=== PATIENT | male | born 2005 | race Caucasian/White ===

== ENCOUNTER 2024-07-20 16:01 | Emergency (ER) | payer MEDICAID, SELFPAY ==
[2024-07-20 16:08] VITALS: BP 155/93; PULSE 71; TEMP 36.7; O2SAT 97; BMI 20.3
[2024-07-20 16:10] VITALS: BP 155/93; O2SAT 99
--- NOTE | 2024-07-20 16:18 | XR_ITS ---
[address] [address] Patient Name: SARAH KAUR MRN: [id number] date: 2005 Sex: M Assigned Patient Location: ER Current Patient Location: ER Accession/Order Number: [id number] Exam Date: 07/20/2024 16:46 Report Date: 07/20/2024 17:43 At the request of: UMESH AL Procedure: XR chest 1V Exam: Radiographs: XR chest 1V Reason for exam: hemoptysis Comparison: None XR/XR chest 1V IMPRESSION: Unremarkable chest x-ray. Electronically authenticated by: LOLA HOLLIS Date: 07/20/2024 17:43
--- NOTE | 2024-07-20 16:19 | ECG_ITS ---
[facility] Date: 2024-07-20 Pat Name: SARAH KAUR Department: Room: - Gender: Male [employer] Compliance Officer: : 2005 Requested By: Order Number: [id number] Reading MD: MITCH DARBY Measurements Intervals [place] Rate: 87 P: 74 HI: 138 QRS: 80 QRSD: 92 T: 47 QT: 344 QTc: 388 Interpretive Statements 1100 Sinus rhythm 1102 Sinus arrhythmia 9110 normal ECG Compared to ECG 10/23/2019 20:14:08 No significant changes Electronically Signed On 07-20-2024 18:08:43 EST by MITCH DARBY
[2024-07-20 16:20] VITALS: PULSE 87
--- NOTE | 2024-07-20 17:24 | ED.CHESTPAI1 ---
HPI - Chest Pain General Chief Complaint: Chest Pain Stated Complaint: coughing up blood chest pain Time Seen by Provider: 07/20/24 16:18 Source: patient Mode of arrival: walk-in History of Present Illness HPI narrative: The patient is coming to us initially with a coughing up blood for the last 5 days he mentioned that he was coughing and he noticed some blood streaks in his mucus, yesterday he mentioned that over the last 2 days he noted some throwing up blood, although the patient was not a good historian he is not complaining of the consistent symptoms mostly 1 time thing that happened and he apparently continued to eat and drink normally today with no nausea no vomiting and never had any abdominal pain The patient denies any coughing at the moment and also denies any abdominal Related Data Allergies Allergy/AdvReac Type Severity Reaction Status Date / Time No Known Drug Allergies Allergy Verified 07/20/24 16:11 Review of Systems ROS Status of ROS 10 or more systems reviewed and unremarkable except as noted in history and below PFSH PFSH Social History Little interest or pleasure in doing things: not at all Feeling down, depressed, or hopeless: not at all Exam Narrative Exam Narrative: Nurses notes and vital signs reviewed and patient is not hypoxic. General: Well-appearing and in no apparent distress. Skin: Warm, dry, no pallor noted. No rash. Head: Normocephalic, atraumatic. Neck: Supple, non-tender. Eye: Pupils are equal, round and EOMI. No scleral icterus. Ears, Nose, Mouth, and Throat: TM are clear, no nasal mucosal hypertrophy. Oral mucosa is moist, no posterior oropharynx erythema, uvula is mid-line Cardiovascular: Regular Rate and Rhythm without murmur, gallop or rub. Respiratory: No accessory muscle use or respiratory distress. Lungs are clear to auscultation, no wheezing, rales or rhonchi Chest Wall: no tenderness Back: No midline thoracic or lumbar vertebral tenderness. No CVA tenderness Musculoskeletal: normal ROM, no calf or popliteal tenderness, no lower extremity edema/swelling GI: Abdomen is soft, non-distended. Normal bowel sounds. No masses appreciated. No tenderness to palpation. No rebound, guarding, or rigidity noted. Neurological: A&O x4. No cranial nerve dysfunction observed. No truncal ataxia. Moves all extremities. Sensation intact. Psychiatric: Cooperative and interactive. Normal mood and affect. Constitutional Vital Signs, click to edit/add: Last Vital Signs Temp 98.0 F 07/20/24 16:08 Pulse 88 07/20/24 17:36 Resp 18 07/20/24 17:36 BP 126/82 07/20/24 17:36 Pulse Ox 99 07/20/24 17:36 O2 Del Method Room Air 07/20/24 17:36 Course Vital Signs Vital signs: Vital Signs Temperature 98.0 F 07/20/24 16:08 Pulse Rate 71 07/20/24 16:08 Respiratory Rate 16 07/20/24 16:08 Blood Pressure 155/93 H 07/20/24 16:08 Pulse Oximetry 97 07/20/24 16:08 Oxygen Delivery Method Room Air 07/20/24 16:08 Temperature 98.0 F 07/20/24 16:08 Pulse Rate 88 07/20/24 17:36 Respiratory Rate 18 07/20/24 17:36 Blood Pressure 126/82 07/20/24 17:36 Pulse Oximetry 99 07/20/24 17:36 Oxygen Delivery Method Room Air 07/20/24 17:36 MDM - Chest Pain MDM Narrative Medical decision making narrative: The patient EKG in the ER was showing sinus rhythm with a heart rate of [address] elevation or depression He is presenting to us with a symptoms of possible bronchitis although he did mention of throwing up blood before but with no abdominal pain Patient refused to had any blood workup and his chest x-ray showed no acute pathology During the whole time the patient was in the ER he did not have any episode of coughing Patient was instructed to to be discharged home with a supportive care as well as monitoring The patient requested a work excuse Discharge Plan Discharge Chief Complaint: Chest Pain Clinical Impression: Bronchitis Patient Disposition: Home, Self-Care Time of Disposition Decision: 17:46 Condition: Good Mode of Transportation: Private Vehicle Print Language: Hungarian Instructions: Acute Bronchitis (ED) Referrals: Physician,Non-Staff, MD [Primary Care Provider] - 1 week
[2024-07-20 17:36] VITALS: BP 126/82; PULSE 88; O2SAT 99
== END 2024-07-20 18:07 | disposition home or self-care (01) ==
PROVIDERS: Emergency Provider Emergency Medicine
DX: J40 Bronchitis, not specified as acute or chronic (principal)
CPT/HCPCS: 71045; 80053; 84484; 85610; 93005; 99284